=== PATIENT | female | born 1970 | race Caucasian/White ===

== ENCOUNTER 2018-05-22 00:31 | Emergency (ER) | payer MEDICAID ==
[~2018-05-22] VITALS: Ht 154.9 cm; Wt 171.5 kg
[~2018-05-22 00:31] MED LIST: ASPIR 8181 MG PO; FERL PO; HUMULIN R100 U/1 M1 SQ; IPRATROPIUM BROM3 M2 HHN; LASIX40 MG PO; LEVOTHYROXINE0.15 M2 PO; LIPITOR40 MG PO; METOPROLOL SUCC50 M2 PO; PAROXETINE HCL20 M1 PO; PAX20 PO; PRILOSEC20 MG PO; PULMICORT0.5 MG/2 M IH; ZOS3PM IV
[2018-05-22 00:41] VITALS: Ht 154.9 cm; Wt 171.5 kg
[2018-05-22 05:26] VITALS: BP 149/73
== END 2018-05-22 05:26 | disposition home or self-care (01) ==
LOC: ED 00:31
DX: L23.9 Allergic contact dermatitis, unspecified cause (principal); J45.909 Unspecified asthma, uncomplicated; I11.0 Hypertensive heart disease with heart failure; I50.9 Heart failure, unspecified; E11.9 Type 2 diabetes mellitus without complications; Z86.73 Personal history of transient ischemic attack (TIA), and cerebral infarction without residual deficits; Z98.890 Other specified postprocedural states
CPT/HCPCS: 36569; J1200; J2270; J2930; Q0163